=== PATIENT | female | born 1965 | race Hispanic/Latino ===

== ENCOUNTER 2016-11-28 17:50 | Emergency (ER) | payer MEDICAID ==
--- NOTE | 2016-11-28 20:02 | Cat Scan Report ---
FINAL REPORT EXAM: CT HEAD/BRAIN WO CON HISTORY: HEAD PAIN / VISUAL CHANGES TECHNIQUE: CT head without contrast PRIORS: None. FINDINGS: No acute intra-axial or extra-axial hemorrhage is identified. There is no evidence of midline shift or mass effect. The ventricles and sulci are within normal limits. Mayberry-white matter differentiation is intact. No acute parenchymal abnormalities seen. Bony calvarium is grossly intact. Visualized portions of the mastoids and paranasal sinuses are unremarkable. IMPRESSION: Negative CT head
[2016-11-28] MEDS ORDERED: ZOFRAN IV ONE (20:07)
[2016-11-28] MEDS ORDERED: DILAUDID IV ONE ×2 (20:07→21:56)
--- NOTE | 2016-11-28 20:20 | Emergency Department Report ---
ED Headache HPI - General Chief Complaint: Headache Stated Complaint: SPINAL FLUID BUILD UP/MOD CHEST PAIN Time Seen by Provider: 11/28/16 19:57 - History of Present Illness Initial Comments: This is a pleasant 51-year-old female with a long-standing history of pseudotumor cerebri. She states that she's been on different medications in the past with success including Topamax and Diamox. She is currently using BiPAP for treatment. She works with the neurologist at her home with her pseudotumor cerebri. She reports recent trip to [place] approximately 2 months ago. She states since the elevation change she's had significant difficulties with her pseudotumor cerebri. She is required for LPs in the last 45 days. She states this is unusual for her. She is reporting some blurring vision and headache today and has requesting for LP for fluid drainage today as well. Patient denies any fevers denies any specific trauma denies any weakness in arms or legs. Because of the vision changes as described. She states this feels very typical and consistent with her pseudotumor cerebri symptoms. Associated Symptoms: nausea/vomiting, vision changes. denies: fever/chills, nasal congestion, numbness in legs/feet, seizures Allergies/Adverse Reactions: Allergies metronidazole [From Flagyl] Allergy (Verified 11/28/16 18:35) Shortness of Breath haloperidol [From Haldol] Adverse Reaction (Verified 11/28/16 18:35) EXTRAPYRAMIDAL SYMPTOMS haloperidol lactate [From Haldol] Adverse Reaction (Verified 11/28/16 18:35) EXTRAPYRAMIDAL SYMPTOMS Home Medications: Ambulatory Orders Sulfamethoxazole/Trimethoprim [Bactrim DS TAB] 1 each PO BID #6 tablet 11/28/16 ED Review of Systems ROS: Stated complaint: SPINAL FLUID BUILD UP/MOD CHEST PAIN Other details as noted in HPI Comment: All other systems reviewed and negative Constitutional: denies: chills, fever Eyes: denies: eye pain, eye discharge, vision change ENT: denies: ear pain, throat pain Respiratory: denies: cough, shortness of breath, wheezing Cardiovascular: denies: chest pain, palpitations Endocrine: no symptoms reported Gastrointestinal: denies: abdominal pain, nausea, diarrhea Genitourinary: denies: urgency, dysuria, discharge Musculoskeletal: denies: back pain, joint swelling, arthralgia Skin: denies: rash, lesions Neurological: headache. denies: weakness, paresthesias Psychiatric: denies: anxiety, depression Hematological/Lymphatic: denies: easy bleeding, easy bruising ED Past Medical Hx - Past Medical History Hx Hypertension: Yes Additional medical history: PSEUDOTUMOR CEREBRI - Surgical History Hx Cholecystectomy: Yes (1987) Additional Surgical History: HYSTERECTOMY 2013. RIGHT ARTHROSCOPY 2012 - Social History Smoking Status: Current Some Day Smoker Substance Use Type: Prescribed - Medications Home Medications: Home Medications Medication Instructions Recorded Confirmed Last Taken Type Sulfamethoxazole/Trimethoprim 1 each PO BID #6 tablet 11/28/16 Unknown Rx [Bactrim DS TAB] ED Physical Exam - General Limitations: No Limitations General appearance: alert, in no apparent distress - Head Head exam: Present: atraumatic, normocephalic - Eye Eye exam: Present: normal appearance, EOMI. Absent: scleral icterus - ENT ENT exam: Present: normal exam, normal orophraynx, mucous membranes moist - Neck Neck exam: Present: normal inspection, full ROM. Absent: tenderness - Respiratory Respiratory exam: Present: normal lung sounds bilaterally. Absent: respiratory distress, wheezes, rales - Cardiovascular Cardiovascular Exam: Present: regular rate, normal rhythm. Absent: systolic murmur, diastolic murmur, rubs, gallop - GI/Abdominal GI/Abdominal exam: Present: soft, normal bowel sounds. Absent: tenderness, guarding - Extremities Exam Extremities exam: Present: normal inspection. Absent: pedal edema, calf tenderness - Back Exam Back exam: Present: normal inspection. Absent: tenderness, CVA tenderness (R), CVA tenderness (L) - Neurological Exam Neurological exam: Present: alert, oriented X3, CN II-XII intact - Psychiatric Psychiatric exam: Present: normal affect, normal mood - Skin Skin exam: Present: warm, dry, intact, normal color. Absent: rash ED Course Vital Signs 11/28/16 11/28/16 11/28/16 18:37 20:54 21:09 Temperature 98.2 F 98.4 F Temperature [ Intra-Procedure ] Temperature [ Post-Procedure] Temperature [ Pre-Procedure] Pulse Rate 78 72 Pulse Rate [ Intra-Procedure ] Pulse Rate [ Post-Procedure] Pulse Rate [Pre -Procedure] Respiratory 19 20 20 Rate Respiratory Rate [Intra- Procedure] Respiratory Rate [Post- Procedure] Respiratory Rate [Pre- Procedure] Blood Pressure 158/88 Blood Pressure [Intra- Procedure] Blood Pressure 170/84 [Left] Blood Pressure [Post-Procedure ] Blood Pressure [Pre-Procedure] O2 Sat by Pulse 99 97 Oximetry O2 Sat by Pulse Oximetry [ Intra-Procedure ] O2 Sat by Pulse Oximetry [Post -Procedure] O2 Sat by Pulse Oximetry [Pre- Procedure] 11/28/16 11/28/16 11/28/16 21:24 21:45 21:50 Temperature Temperature [ 98.4 F Intra-Procedure ] Temperature [ Post-Procedure] Temperature [ 98.4 F Pre-Procedure] Pulse Rate Pulse Rate [ 81 Intra-Procedure ] Pulse Rate [ Post-Procedure] Pulse Rate [Pre 84 -Procedure] Respiratory 20 Rate Respiratory 20 Rate [Intra- Procedure] Respiratory Rate [Post- Procedure] Respiratory 20 Rate [Pre- Procedure] Blood Pressure Blood Pressure 169/82 [Intra- Procedure] Blood Pressure [Left] Blood Pressure [Post-Procedure ] Blood Pressure 170/84 [Pre-Procedure] O2 Sat by Pulse Oximetry O2 Sat by Pulse 99 Oximetry [ Intra-Procedure ] O2 Sat by Pulse Oximetry [Post -Procedure] O2 Sat by Pulse 99 Oximetry [Pre- Procedure] 11/28/16 11/28/16 11/28/16 22:00 22:19 22:49 Temperature Temperature [ Intra-Procedure ] Temperature [ 98.4 F Post-Procedure] Temperature [ Pre-Procedure] Pulse Rate Pulse Rate [ Intra-Procedure ] Pulse Rate [ 85 Post-Procedure] Pulse Rate [Pre -Procedure] Respiratory 20 20 Rate Respiratory Rate [Intra- Procedure] Respiratory 20 Rate [Post- Procedure] Respiratory Rate [Pre- Procedure] Blood Pressure Blood Pressure [Intra- Procedure] Blood Pressure [Left] Blood Pressure 168/80 [Post-Procedure ] Blood Pressure [Pre-Procedure] O2 Sat by Pulse Oximetry O2 Sat by Pulse Oximetry [ Intra-Procedure ] O2 Sat by Pulse 99 Oximetry [Post -Procedure] O2 Sat by Pulse Oximetry [Pre- Procedure] 11/28/16 11/28/16 22:55 23:07 Temperature Temperature [ Intra-Procedure ] Temperature [ Post-Procedure] Temperature [ Pre-Procedure] Pulse Rate Pulse Rate [ Intra-Procedure ] Pulse Rate [ Post-Procedure] Pulse Rate [Pre -Procedure] Respiratory 20 18 Rate Respiratory Rate [Intra- Procedure] Respiratory Rate [Post- Procedure] Respiratory Rate [Pre- Procedure] Blood Pressure Blood Pressure [Intra- Procedure] Blood Pressure [Left] Blood Pressure [Post-Procedure ] Blood Pressure [Pre-Procedure] O2 Sat by Pulse Oximetry O2 Sat by Pulse Oximetry [ Intra-Procedure ] O2 Sat by Pulse Oximetry [Post -Procedure] O2 Sat by Pulse Oximetry [Pre- Procedure] - Reevaluation(s) Reevaluation #1: 11/29/16 00:51 Patient was given pain medication here per her request. She knows her illness quite well and knew exactly which medication would help her. I did perform LP. She did have significantly elevated opening pressures. Total of 47 mL of spinal fluid was removed. Subjectively patient reported resolution of her spinal headache. She states that she is having some slight frontal headache. I probably didn't drop her pressure is a little too low as my goal was to shoot for 10 and landed up at 8. Ultimately I think she will do fine however. She does have her with her. She did request Lasix as well. She states this is usually helpful as well. She did receive lidocaine patch as well. Neurologically she remained intact before and after the procedure. I feel she is safe for home she has a neurologist to home. - Lumbar Puncture Consent Obtained: written consent Time Out Performed: Yes Indication for Procedure: headache Patient Position: left lateral decubitus Skin Prep: Povidone-Iodine 1% Local Anesthetic Used: Lidocaine 1% Spinal Needle Gauge: 20G Spinal Needle Length: 3in Interspace Used: L4-L5 Opening Pressure (cmH20): 40 Closing Pressure (cmH20): 8 Fluid Initially Obtained: clear Complications: none Patient Tolerated Procedure: well ED Medical Decision Making - Radiology Data Radiology results: report reviewed, image reviewed interpreted by me: Negative Critical care attestation.: If time is entered above; I have spent that time in minutes in the direct care of this critically ill patient, excluding procedure time. ED Disposition Clinical Impression: Pseudotumor cerebri syndrome Disposition: DISCHARGED TO HOME OR SELFCARE Is pt being admited?: No Does the pt Need Aspirin: No Condition: Stable Prescriptions: Sulfamethoxazole/Trimethoprim [Bactrim DS TAB] 1 each PO BID #6 tablet Referrals: [facility] [Other] - 3-5 Days Time of Disposition: 22:13
[2016-11-28 21:30] LABS: Bacteria,Urine 4+ /HPF (Negative); Bilirubin,Urine NEG (Negative); Blood,Urine NEG (Negative); Ketones,Urine NEG (Negative); Leukocyte Esterase,Urine TR (Negative); Mucus,Urine 3+ /HPF; Nitrite,Urine NEG (Negative); Protein,Urine <15 mg/dL mg/dL (Negative); Urobilinogen,Urine < 2.0 mg/dL (<2.0)
[2016-11-28] MEDS ORDERED: DECADRON IV ONE (22:10)
[2016-11-28] MEDS ORDERED: LASIX IV ONE (22:10)
[2016-11-28] MEDS ORDERED: LIDODERM 5% TD SCH (22:15)
[2016-11-28 22:30] VITALS: BP 168/80
[2016-11-28] MEDS ORDERED: PERCOCET 5/325 ONE (22:50)
[2016-11-28] MEDS ORDERED: PERCOCET 5/325 PO ONE (22:53)
== END 2016-11-28 23:09 | disposition home or self-care (01) ==
LOC: ED 17:50
DX: G93.2 Benign intracranial hypertension (principal); I10 Essential (primary) hypertension; F17.200 Nicotine dependence, unspecified, uncomplicated
CPT/HCPCS: 62270; 70450; 81001; 96374; 96375; 96376; 99284; J1100; J1170; J1940; J2405

== ENCOUNTER 2016-12-24 16:02 | Emergency (ER) | payer MEDICAID ==
[2016-12-24 19:49] LABS: Bacteria,Urine 3+ /HPF (Negative); Bilirubin,Urine NEG (Negative); Blood,Urine NEG (Negative); Ketones,Urine NEG (Negative); Leukocyte Esterase,Urine NEG (Negative); Mucus,Urine 1+ /HPF; Nitrite,Urine NEG (Negative); Protein,Urine <15 mg/dL mg/dL (Negative); Urobilinogen,Urine < 2.0 mg/dL (<2.0)
[2016-12-24] MEDS ORDERED: DECADRON IV ONE (20:40)
[2016-12-24] MEDS ORDERED: REGLAN IV ONE (20:40)
[2016-12-24] MEDS ORDERED: FIORICET PO ONE (20:40)
[2016-12-24] MEDS ORDERED: BENADRYL IV ONE (20:40)
[2016-12-24] MEDS ORDERED: XYLOCAINE 2%/EPI 1:100,000 INFILTRATI ONE (20:42)
--- NOTE | 2016-12-24 20:43 | Emergency Department Report ---
ED General Adult HPI - General Chief complaint: Headache Stated complaint: SPINAL FLUID BUILD UP/HEADACHE /NAUSEA Time Seen by Provider: 12/24/16 20:05 Source: patient, RN notes reviewed, old records reviewed Mode of arrival: Ambulatory Limitations: No Limitations - History of Present Illness Initial comments: This is a 51-year-old female. She is previously unknown to me. She currently does not have a private neurologist, but she is trying to arrange follow-up with an outpatient neurology specialist at [facility]. Primary care physician is at [facility]. The patient has a past medical history of pseudotumor cerebri. The patient presents to the ER complaining of her typical pseudotumor cerebri headache. The headache is throbbing, 8 out of 10, worse with laying down. The patient indicates mild decrease in vision in her peripheral vision. The headache is not sudden or thunderclap in nature. Did not reach maximal intensity within an hour. It is not the worse headache of her life. It is consistent with prior headaches. The patient reports that her symptoms typically improved with a spinal tap, Lasix, Decadron. The patient has no chest pain, shortness of breath, no abdominal pain, no extremity weakness, no extremity numbness. -: Gradual Location: head Quality: aching Improves with: medication (as per hpi) Associated Symptoms: cough, headaches. denies: confusion, chest pain, loss of appetite, shortness of breath, syncope, weakness - Related Data Home Medications Medication Instructions Recorded Confirmed Last Taken Lisinopril [Zestril] 20 mg PO QDAY 12/24/16 12/24/16 12/24/16 Meloxicam 15 mg PO QDAY 12/24/16 12/24/16 12/24/16 Metformin HCl [Glucophage] 500 mg PO DAILY 12/24/16 12/24/16 12/24/16 Metoprolol Tartrate [Lopressor] 50 mg PO DAILY 12/24/16 12/24/16 12/24/16 Sertraline HCl [Zoloft] 100 mg PO DAILY 12/24/16 12/24/16 12/24/16 Previous Rx's Medication Instructions Recorded Last Taken Type Metoclopramide [Reglan] 10 mg PO QID PRN #30 tablet 12/25/16 Unknown Rx oxyCODONE [Roxicodone] 5 mg PO Q6HR PRN #15 tablet 12/25/16 Unknown Rx Allergies Allergy/AdvReac Type Severity Reaction Status Date / Time metronidazole [From Flagyl] Allergy Shortness Verified 11/28/16 18:35 of Breath haloperidol [From Haldol] AdvReac EXTRAPYRAMIDAL Verified 11/28/16 18:35 SYMPTOMS haloperidol lactate AdvReac EXTRAPYRAMIDAL Verified 11/28/16 18:35 [From Haldol] SYMPTOMS ED Review of Systems ROS: Stated complaint: SPINAL FLUID BUILD UP/HEADACHE /NAUSEA Other details as noted in HPI Constitutional: denies: fever, malaise Eyes: vision change ENT: denies: ear pain, throat pain Respiratory: denies: orthopnea Cardiovascular: denies: chest pain Gastrointestinal: denies: abdominal pain Genitourinary: denies: dysuria Musculoskeletal: denies: back pain Skin: denies: lesions Neurological: headache. denies: numbness, paresthesias, confusion, abnormal gait, vertigo ED Past Medical Hx - Past Medical History Previous Medical History?: Yes Hx Hypertension: Yes Additional medical history: PSEUDOTUMOR CEREBRI - Surgical History Past Surgical History?: Yes Hx Cholecystectomy: Yes (1987) Additional Surgical History: HYSTERECTOMY 2013. RIGHT ARTHROSCOPY 2012 - Social History Smoking Status: Never Smoker Substance Use Type: None - Medications Home Medications: Home Medications Medication Instructions Recorded Confirmed Last Taken Type Lisinopril [Zestril] 20 mg PO QDAY 12/24/16 12/24/16 12/24/16 History Meloxicam 15 mg PO QDAY 12/24/16 12/24/16 12/24/16 History Metformin HCl [Glucophage] 500 mg PO DAILY 12/24/16 12/24/16 12/24/16 History Metoprolol Tartrate [Lopressor] 50 mg PO DAILY 12/24/16 12/24/16 12/24/16 History Sertraline HCl [Zoloft] 100 mg PO DAILY 12/24/16 12/24/16 12/24/16 History Metoclopramide [Reglan] 10 mg PO QID PRN #30 tablet 12/25/16 Unknown Rx oxyCODONE [Roxicodone] 5 mg PO Q6HR PRN #15 tablet 12/25/16 Unknown Rx ED Physical Exam - General Limitations: No Limitations General appearance: alert, in no apparent distress, obese - Head Head exam: Present: atraumatic, normocephalic - Eye Eye exam: Present: normal appearance, PERRL, EOMI, other (visual acuity is intact to finger counting, color perception, reading at a close distance. Patient has minimal visual field cuts on direct confrontation in 4 quadrants.). Absent: nystagmus - ENT ENT exam: Present: normal exam, normal orophraynx, mucous membranes moist, normal external ear exam - Neck Neck exam: Present: normal inspection, full ROM. Absent: tenderness, meningismus - Respiratory Respiratory exam: Present: normal lung sounds bilaterally. Absent: respiratory distress, wheezes, rales, rhonchi, stridor, chest wall tenderness, accessory muscle use, decreased breath sounds, prolonged expiratory - Cardiovascular Cardiovascular Exam: Present: regular rate, normal rhythm, normal heart sounds. Absent: bradycardia, tachycardia, irregular rhythm, systolic murmur, diastolic murmur, rubs, gallop - GI/Abdominal GI/Abdominal exam: Present: soft, normal bowel sounds. Absent: distended, tenderness, guarding, rebound, rigid, pulsatile mass - Extremities Exam Extremities exam: Present: normal inspection, full ROM, normal capillary refill. Absent: tenderness, pedal edema, joint swelling, calf tenderness - Back Exam Back exam: Present: normal inspection, full ROM. Absent: tenderness, CVA tenderness (R), CVA tenderness (L), muscle spasm, paraspinal tenderness, vertebral tenderness - Neurological Exam Neurological exam: Present: alert, oriented X3, normal gait, other (Extraocular movements intact. Tongue midline. No facial droop. Facial sensation intact to light touch in the V1, V2, V3 distribution bilaterally. 5 and 5 strength in 4 extremities.. Sensation is intact to light touch in 4 extremities.). Absent : motor sensory deficit - Psychiatric Psychiatric exam: Present: normal affect, normal mood - Skin Skin exam: Present: warm, dry, intact, normal color. Absent: rash ED Course Vital Signs 12/24/16 12/24/16 12/24/16 16:11 19:26 19:30 Temperature 98.8 F Pulse Rate 70 74 71 Respiratory 15 16 Rate Blood Pressure 194/108 187/94 Blood Pressure [Left] O2 Sat by Pulse 97 97 98 Oximetry 12/24/16 12/24/16 12/24/16 19:36 19:40 19:50 Temperature Pulse Rate 74 70 68 Respiratory 15 23 19 Rate Blood Pressure 187/94 154/99 Blood Pressure 187/94 [Left] O2 Sat by Pulse 98 94 95 Oximetry 12/24/16 12/24/16 12/24/16 20:00 20:10 20:24 Temperature Pulse Rate 64 64 90 Respiratory 16 20 19 Rate Blood Pressure 150/80 150/80 145/90 Blood Pressure [Left] O2 Sat by Pulse 93 93 93 Oximetry 12/24/16 12/24/16 12/24/16 20:30 20:40 20:50 Temperature Pulse Rate 82 73 75 Respiratory 15 16 16 Rate Blood Pressure 145/90 145/90 166/91 Blood Pressure [Left] O2 Sat by Pulse 95 96 95 Oximetry 12/24/16 12/24/16 12/24/16 21:00 21:12 21:20 Temperature Pulse Rate 91 H 68 Respiratory 22 21 Rate Blood Pressure 167/99 145/90 173/88 Blood Pressure [Left] O2 Sat by Pulse 94 86 94 Oximetry 12/24/16 12/25/16 21:30 00:21 Temperature Pulse Rate 89 73 Respiratory 26 H 18 Rate Blood Pressure 169/94 Blood Pressure 165/70 [Left] O2 Sat by Pulse 97 100 Oximetry - Reevaluation(s) Reevaluation #1: 12/24/16 21:09 Differential diagnosis: Headache secondary to pseudotumor cerebri, incidental elevated blood pressure Assessment and plan: 51-year-old female with history of pseudotumor with headache. Patient indicates she always has hypertension when her headache gets this intense. Patient has a GCS of 15, NIH score of 0. She is smiling, laughing, appears very well, no neck pain or neck stiffness. Patient consents for spinal tap. Given her subjective change in visual agosto, I think it is prudent to perform a spinal tap for symptomatic relief. Risks, benefits, alternatives discussed. Laboratory studies reviewed. Noncontrast CT scan of the brain is pending. At this point in time, patient's blood pressures in the 150s. Reevaluation #2: 12/24/16 23:[address] scan of the brain is negative. Lumbar puncture attempted. Unsuccessful. We are waiting for consultation with neurology at [facility]. Reevaluation #3: 12/24/16 23:59 lumbar puncture attempted, unsuccessful. CT scans are transmitted to [facility] PACs. Case is discussed with neurology on-call, Dr. Francisco Lux. Case is discussed with him. He indicates that the patient's visual complaints is not currently an indication for emergent lumbar puncture. He further recommends that there is no indication to admit the patient for fluoroscopically guided spinal tap. He recommends that the patient follow up with her outpatient neuro-cadastral engineer. I have gone back to discuss this with the patient. She indicates that she does follow up with neuro-ophthalmology at [facility], and that she indicates that she will contact them on Tuesday to arrange a follow-up appointment. She requests oxycodone for pain, she'll be discharged with this. - Lumbar Puncture Consent Obtained: verbal consent, written consent Time Out Performed: Yes Indication for Procedure: other (pseudotumor cerebri) Patient Position: right lateral decubitus Skin Prep: Povidone-Iodine 1% Local Anesthetic Used: Lidocaine 2% Amount of anesthesia used (mls): 6 Spinal Needle Gauge: 22G Spinal Needle Length: 2in Interspace Used: L3-L4 Complications: none, unable to obtain CSF, low back pain, bleeding Patient Tolerated Procedure: well ED Medical Decision Making - Lab Data Result diagrams: 12/24/16 20:31 12/24/16 20:31 Vital Signs (72 hours) 12/24/16 12/24/16 12/24/16 16:11 19:26 19:30 Temperature 98.8 F Pulse Rate 70 74 71 Respiratory 15 16 Rate Blood Pressure 194/108 187/94 Blood Pressure [Left] O2 Sat by Pulse 97 97 98 Oximetry 12/24/16 19:36 Temperature Pulse Rate 74 Respiratory 15 Rate Blood Pressure Blood Pressure 187/94 [Left] O2 Sat by Pulse 98 Oximetry Lab Results 12/24/16 12/24/16 12/24/16 Range/Units 19:10 20:31 20:31 WBC 14.3 H (4.5-11.0) K/mm3 RBC 4.67 (3.65-5.03) M/mm3 Hgb 12.9 (10.1-14.3) gm/dl Hct 40.7 (30.3-42.9) % MCV 87 (79-97) fl MCH 28 (28-32) pg MCHC 32 (30-34) % RDW 14.5 (13.2-15.2) % Plt Count 382 (140-440) K/mm3 Sodium 142 (137-145) mmol/L Potassium 3.8 (3.6-5.0) mmol/L Chloride 101.5 (98-107) mmol/L Carbon Dioxide 28 (22-30) mmol/L Anion Gap 16 mmol/L BUN 15 (7-17) mg/dL Creatinine 0.7 (0.7-1.2) mg/dL Estimated GFR > 60 ml/min BUN/Creatinine Ratio 21.42 % Glucose 126 H (65-100) mg/dL Calcium 9.2 (8.4-10.2) mg/dL Urine Color Yellow (Yellow) Urine Turbidity Clear (Clear) Urine pH 6.0 (5.0-7.0) Ur Specific [place] 1.023 (1.003-1.030) Urine Protein <15 mg/dl (Negative) mg/dL Urine Glucose (UA) Neg (Negative) mg/dL Urine Ketones Neg (Negative) mg/dL Urine Blood Neg (Negative) Urine Nitrite Neg (Negative) Urine Bilirubin Neg (Negative) Urine Urobilinogen < 2.0 (<2.0) mg/dL Ur Leukocyte Esterase Neg (Negative) Urine WBC (Auto) 4.0 (0.0-6.0) /HPF Urine RBC (Auto) 3.0 (0.0-6.0) /HPF U Epithel Cells (Auto) 4.0 (0-13.0) /HPF Urine Bacteria (Auto) 3+ (Negative) /HPF Calcium Oxalate Crystal 2+ Urine Mucus 1+ /HPF Urine HCG, Qual Negative (Negative) Critical care attestation.: If time is entered above; I have spent that time in minutes in the direct care of this critically ill patient, excluding procedure time. ED Disposition Clinical Impression: Headache Disposition: DISCHARGED TO HOME OR SELFCARE Is pt being admited?: No Does the pt Need Aspirin: No Condition: Stable Instructions: Idiopathic Intracranial Hypertension (ED) Additional Instructions: Take the medications as directed. Follow up with her outpatient neuro ophthalmology specialist within the next week. Return to the ER right away with fevers or chills, chest pain or shortness of breath, extremity weakness, extremity numbness, loss of vision, fevers or chills. Prescriptions: Metoclopramide [Reglan] 10 mg PO QID PRN #30 tablet PRN Reason: Nausea oxyCODONE [Roxicodone] 5 mg PO Q6HR PRN #15 tablet PRN Reason: Pain Referrals: PRIMARY CARE, [Primary Care Provider] - 3-5 Days OMAR RICHTER MD [Staff Physician] - 3-5 Days ELEAZAR AU MD [Staff Physician] - 3-5 Days ABHISHEK MORRIS MD [Staff Physician] - 3-5 Days
[2016-12-24 20:59] LABS: Hematocrit 40.7 % (30.3-42.9); Hemoglobin 12.9 gm/dl (10.1-14.3); Mean Corpuscular HGB Conc 32 % (30-34); Mean Corpuscular Hemoglobin 28 pg (28-32); Mean Corpuscular Volume 87 fl (79-97); Platelet Count 382 K/mm3 (140-440); Red Blood Count 4.67 M/mm3 (3.65-5.03); Red Cell Distribution Width 14.5 % (13.2-15.2); White Blood Count 14.3 K/mm3 (4.5-11.0)
[2016-12-24 21:00] LABS: Anion Gap 16 mmol/L; BUN/Creatinine Ratio 21.42; Blood Urea Nitrogen 15 mg/dL (7-17); Calcium 9.2 mg/dL (8.4-10.2); Carbon Dioxide 28 mmol/L (22-30); Chloride 101.5 mmol/L (98-107); Glucose 126 mg/dL (65-100); Potassium 3.8 mmol/L (3.6-5.0); Sodium 142 mmol/L (137-145)
[2016-12-24 21:50] LABS: INR 0.97 (0.87-1.13)
--- NOTE | 2016-12-24 22:38 | Cat Scan Report ---
FINAL REPORT EXAM: CT HEAD/BRAIN WO CON HISTORY: conrad, hx of pseudotumor cerebri TECHNIQUE: CT imaging acquired through the head without intravenous contrast. Transaxial reformations are provided. PRIORS: 11/28/2016 FINDINGS: The ventricles, cisterns and sulci are within normal limits. No intraparenchymal or extra-axial mass, hemorrhage, or mass effect. Mayberry and white-matter differentiation is within normal limits. Normal spherical shape of the globes. Paranasal sinuses and mastoid air cells are clear. No skull or facial fracture visualized. IMPRESSION: No acute intracranial abnormality. Consider MRI follow-up.
[2016-12-24] MEDS ORDERED: SUBLIMAZE ONE (22:47)
[2016-12-24] MEDS ORDERED: SUBLIMAZE IV ONE ×2 (22:48→22:50)
[2016-12-24] MEDS ORDERED: ZOFRAN IV ONE (22:51)
[2016-12-24] MEDS ORDERED: ZOFRAN ONE (22:55)
[2016-12-25 00:22] VITALS: BP 165/70
== END 2016-12-25 00:22 | disposition home or self-care (01) ==
LOC: ED 16:02
DX: R51 Headache (principal); I10 Essential (primary) hypertension; Z90.49 Acquired absence of other specified parts of digestive tract; Z90.710 Acquired absence of both cervix and uterus; Z88.8 Allergy status to other drugs, medicaments and biological substances
CPT/HCPCS: 36415; 62270; 70450; 80048; 81001; 81025; 85027; 85610; 85730; 96374; 96375; 99284; J1100; J1200; J2405; J2765; J2930; J3010

== ENCOUNTER 2017-02-02 17:45 | Emergency (ER) | payer MEDICAID ==
[2017-02-02 19:37] LABS: Basophils % (Auto) 0.5 % (0.0-1.8); Eosinophils % (Auto) 2.6 % (0.0-4.3); Hematocrit 39.8 % (30.3-42.9); Hemoglobin 12.9 gm/dl (10.1-14.3); Mean Corpuscular HGB Conc 33 % (30-34); Mean Corpuscular Hemoglobin 28 pg (28-32); Mean Corpuscular Volume 87 fl (79-97); Platelet Count 362 K/mm3 (140-440); Red Blood Count 4.58 M/mm3 (3.65-5.03); Red Cell Distribution Width 14.8 % (13.2-15.2); White Blood Count 14.2 K/mm3 (4.5-11.0)
[2017-02-02 19:46] LABS: INR 0.94 (0.87-1.13)
[2017-02-02 19:47] LABS: Partial Thromboplastin Time 24.9 Sec. (24.2-36.6)
[2017-02-02 20:00] LABS: Alanine Aminotransferase 26 units/L (7-56); Albumin 4.1 g/dL (3.9-5); Albumin/Globulin Ratio 1.5 %; Alkaline Phosphatase 119 units/L (35-129); Anion Gap 19 mmol/L; Blood Urea Nitrogen 14 mg/dL (7-17); Calcium 9.5 mg/dL (8.4-10.2); Carbon Dioxide 28 mmol/L (22-30); Chloride 100.3 mmol/L (98-107); Glucose 114 mg/dL (65-100); Potassium 3.8 mmol/L (3.6-5.0); Sodium 143 mmol/L (137-145); Total Protein 6.9 g/dL (6.3-8.2)
[2017-02-02] MEDS ORDERED: ZOFRAN IV ONE (20:55)
[2017-02-02] MEDS ORDERED: SUBLIMAZE IV ONE ×2 (20:55→22:10)
--- NOTE | 2017-02-02 21:00 | Emergency Department Report ---
HPI - General Chief Complaint: Headache Time Seen by Provider: 02/02/17 20:48 - HPI HPI: Room 10 The patient is a 51-year-old female presenting with a chief complaint of headache. The patient states she has a history of pseudotumor cerebri has not been unable to get a neurologist recently secondary to insurance change. Patient suggested days developed a global headache feels just like her previous bouts of pseudotumor cerebri. Patient states the headache is worse lying down. Patient admits to nausea but denies vomiting. Patient denies fever or recent trauma. Patient currently gives her pain a score of 9/10 Location: Headache Duration: Constant since yesterday Quality: Headache consistent with previous pseudotumor cerebri headaches Severity: 9/10 Modifying factors: [see above] Context: [see above] Mode of transportation: [not driving] ED Past Medical Hx - Past Medical History Previous Medical History?: Yes Hx Hypertension: Yes Additional medical history: PSEUDOTUMOR CEREBRI, rosacea - Surgical History Past Surgical History?: Yes Hx Cholecystectomy: Yes (1987) Additional Surgical History: HYSTERECTOMY 2013. RIGHT ARTHROSCOPY 2012 - Family History Family history: no significant - Social History Smoking Status: Current Every Day Smoker Substance Use Type: Alcohol (rarely) - Medications Home Medications: Home Medications Medication Instructions Recorded Confirmed Last Taken Type Lisinopril [Zestril] 20 mg PO QDAY 12/24/16 02/02/17 12/24/16 History Meloxicam 15 mg PO QDAY 12/24/16 02/02/17 12/24/16 History Metformin HCl [Glucophage] 500 mg PO DAILY 12/24/16 02/02/17 12/24/16 History Metoprolol Tartrate [Lopressor] 50 mg PO DAILY 12/24/16 02/02/17 12/24/16 History Sertraline HCl [Zoloft] 100 mg PO DAILY 12/24/16 02/02/17 12/24/16 History Metoclopramide [Reglan] 10 mg PO QID PRN #30 tablet 12/25/16 02/02/17 Unknown Rx oxyCODONE [Roxicodone] 5 mg PO Q6HR PRN #15 tablet 12/25/16 02/02/17 Unknown Rx Butalb/Acetamin/Caff 50-325-40 2 tab PO Q8HR PRN #20 tablet 02/02/17 Unknown Rx [Fioricet] Promethazine [Phenergan TAB] 25 mg PO Q6HR PRN #20 tab 02/02/17 Unknown Rx Promethazine [Phenergan] 25 mg [place] Q6HR PRN #10 supp.rect 02/02/17 Unknown Rx ED Review of Systems ROS: Stated complaint: HEADACHE/BLURRED VISION/NAUSEA Other details as noted in HPI Comment: All other systems reviewed and negative Constitutional: denies: chills, fever Eyes: vision change. denies: eye pain, eye discharge ENT: denies: ear pain, throat pain Respiratory: denies: cough, shortness of breath, wheezing Cardiovascular: as per HPI Endocrine: no symptoms reported Gastrointestinal: nausea. denies: vomiting Genitourinary: denies: urgency, dysuria, discharge Musculoskeletal: denies: back pain, joint swelling, arthralgia Skin: denies: rash, lesions Neurological: headache Psychiatric: denies: anxiety, depression Hematological/Lymphatic: denies: easy bleeding, easy bruising Physical Exam - Physical Exam Vital Signs: Vital Signs 02/02/17 02/02/17 19:01 20:24 Temperature 99 F Pulse Rate 78 95 H Respiratory 20 16 Rate Blood Pressure 183/121 Blood Pressure 167/94 [Left] O2 Sat by Pulse 100 96 Oximetry Physical Exam: GENERAL: The patient is well-developed well-nourished female lying on stretcher not appearing to be in acute distress. [] HEENT: Normocephalic. Atraumatic. Extraocular motions are intact. Patient has moist mucous membranes. NECK: Supple. No meningitic signs are noted. Trachea midline CHEST/LUNGS: Clear to auscultation. There is no respiratory distress noted. HEART/CARDIOVASCULAR: Regular. There is no tachycardia. There is no gallop rub or murmur. ABDOMEN: Abdomen is soft, nontender. Patient has normal bowel sounds. There is no abdominal distention. SKIN: There is no rash. There is no edema. There is no diaphoresis. NEURO: The patient is awake, alert, and oriented. The patient is cooperative. The patient has no focal neurologic deficits. The patient has normal speech. Cranial nerves II through XII grossly intact, no drift. Normal sensation throughout MUSCULOSKELETAL: There is no evidence of acute injury. ED Course Vital Signs 02/02/17 02/02/17 19:01 20:24 Temperature 99 F Pulse Rate 78 95 H Respiratory 20 16 Rate Blood Pressure 183/121 Blood Pressure 167/94 [Left] O2 Sat by Pulse 100 96 Oximetry - Lumbar Puncture Consent Obtained: verbal consent Time Out Performed: Yes Indication for Procedure: headache Patient Position: left lateral decubitus Skin Prep: Povidone-Iodine 1% Local Anesthetic Used: Lidocaine 1% Amount of anesthesia used (mls): 10 Spinal Needle Gauge: 20G Spinal Needle Length: 3.5in Interspace Used: L4-L5 Opening Pressure (cmH20): 46.5 Closing Pressure (cmH20): 12 Fluid Initially Obtained: clear Complications: none Patient Tolerated Procedure: well ED Medical Decision Making - Lab Data Result diagrams: 02/02/17 19:27 02/02/17 19:27 Laboratory Tests 02/02/17 02/02/17 02/02/17 19:27 19:27 19:27 WBC 14.2 H RBC 4.58 Hgb 12.9 Hct 39.8 MCV 87 MCH 28 MCHC 33 RDW 14.8 Plt Count 362 Lymph % (Auto) 16.9 [place] % (Auto) 7.4 H Eos % (Auto) 2.6 Baso % (Auto) 0.5 Lymph # 2.4 [place] # 1.1 H Eos # 0.4 Baso # 0.1 Seg Neutrophils % 72.6 H Seg Neutrophils # 10.3 H PT 12.5 INR 0.94 APTT 24.9 Sodium 143 Potassium 3.8 Chloride 100.3 Carbon Dioxide 28 Anion Gap 19 BUN 14 Creatinine 0.7 Estimated GFR > 60 BUN/Creatinine Ratio 20.00 Glucose 114 H Calcium 9.5 Total Bilirubin 0.40 AST 15 ALT 26 Alkaline Phosphatase 119 Total Protein 6.9 Albumin 4.1 Albumin/Globulin Ratio 1.5 Laboratory Tests 02/02/17 02/02/17 02/02/17 19:27 19:27 19:27 WBC 14.2 H RBC 4.58 Hgb 12.9 Hct 39.8 MCV 87 MCH 28 MCHC 33 RDW 14.8 Plt Count 362 Lymph % (Auto) 16.9 [place] % (Auto) 7.4 H Eos % (Auto) 2.6 Baso % (Auto) 0.5 Lymph # 2.4 [place] # 1.1 H Eos # 0.4 Baso # 0.1 Seg Neutrophils % 72.6 H Seg Neutrophils # 10.3 H PT 12.5 INR 0.94 APTT 24.9 Sodium 143 Potassium 3.8 Chloride 100.3 Carbon Dioxide 28 Anion Gap 19 BUN 14 Creatinine 0.7 Estimated GFR > 60 BUN/Creatinine Ratio 20.00 Glucose 114 H Calcium 9.5 Total Bilirubin 0.40 AST 15 ALT 26 Alkaline Phosphatase 119 Total Protein 6.9 Albumin 4.1 Albumin/Globulin Ratio 1.5 Urine Color Urine Turbidity Urine pH Ur Specific [place] Urine Protein Urine Glucose (UA) Urine Ketones Urine Blood Urine Nitrite Urine Bilirubin Urine Urobilinogen Ur Leukocyte Esterase Urine WBC (Auto) Urine RBC (Auto) U Epithel Cells (Auto) Urine Bacteria (Auto) CSF Appearance CSF Color CSF WBC CSF RBC CSF Glucose CSF Total Protein 02/02/17 02/02/17 02/02/17 20:24 23:01 23:01 WBC RBC Hgb Hct MCV MCH MCHC RDW Plt Count Lymph % (Auto) [place] % (Auto) Eos % (Auto) Baso % (Auto) Lymph # [place] # Eos # Baso # Seg Neutrophils % Seg Neutrophils # PT INR APTT Sodium Potassium Chloride Carbon Dioxide Anion Gap BUN Creatinine Estimated GFR BUN/Creatinine Ratio Glucose Calcium Total Bilirubin AST ALT Alkaline Phosphatase Total Protein Albumin Albumin/Globulin Ratio Urine Color Straw Urine Turbidity Clear Urine pH 6.0 Ur Specific [place] 1.011 Urine Protein <15 mg/dl Urine Glucose (UA) Neg Urine Ketones Neg Urine Blood Neg Urine Nitrite Neg Urine Bilirubin Neg Urine Urobilinogen < 2.0 Ur Leukocyte Esterase Neg Urine WBC (Auto) < 1.0 Urine RBC (Auto) 1.0 U Epithel Cells (Auto) 1.0 Urine Bacteria (Auto) 2+ CSF Appearance Clear CSF Color Colorless CSF WBC 1 CSF RBC 14 CSF Glucose 63 CSF Total Protein 33 02/02/17 23:01 WBC RBC Hgb Hct MCV MCH MCHC RDW Plt Count Lymph % (Auto) [place] % (Auto) Eos % (Auto) Baso % (Auto) Lymph # [place] # Eos # Baso # Seg Neutrophils % Seg Neutrophils # PT INR APTT Sodium Potassium Chloride Carbon Dioxide Anion Gap BUN Creatinine Estimated GFR BUN/Creatinine Ratio Glucose Calcium Total Bilirubin AST ALT Alkaline Phosphatase Total Protein Albumin Albumin/Globulin Ratio Urine Color Urine Turbidity Urine pH Ur Specific [place] Urine Protein Urine Glucose (UA) Urine Ketones Urine Blood Urine Nitrite Urine Bilirubin Urine Urobilinogen Ur Leukocyte Esterase Urine WBC (Auto) Urine RBC (Auto) U Epithel Cells (Auto) Urine Bacteria (Auto) CSF Appearance Clear CSF Color Colorless CSF WBC 0 CSF RBC 3 CSF Glucose CSF Total Protein - Radiology Data Radiology results: report reviewed (CT head), image reviewed (CT head) CT head (read by radiologist)-no CT evidence of acute intracranial abnormality - Differential Diagnosis pseudotumor cerebra, ICH, intracranial mass, Critical care attestation.: If time is entered above; I have spent that time in minutes in the direct care of this critically ill patient, excluding procedure time. ED Disposition Clinical Impression: Pseudotumor cerebri, Headache Disposition: TO HOME OR SELFCARE Is pt being admited?: No Does the pt Need Aspirin: No Condition: Stable Instructions: Idiopathic Intracranial Hypertension (ED), Acute Headache (ED) Additional Instructions: Return to the emergency department immediately should you develop worsening symptoms, fever, inability to tolerate food or liquid or any other concerns. Prescriptions: Butalb/Acetamin/Caff 50-325-40 [Fioricet] 2 tab PO Q8HR PRN #20 tablet PRN Reason: Headache Promethazine [Phenergan TAB] 25 mg PO Q6HR PRN #20 tab PRN Reason: Nausea Promethazine [Phenergan] 25 mg [place] Q6HR PRN #10 supp.rect PRN Reason: Vomiting Referrals: ABHISHEK MILLS MD [Staff Physician] - [facility] (Dr. Mills is a neurologist. Please follow up with him or your own neurologist for further evaluation) Dr. Taco Johnson, neurology [Other] - [facility] Time of Disposition: 00:17
[2017-02-02 21:28] LABS: Bacteria,Urine 2+ /HPF (Negative); Bilirubin,Urine NEG (Negative); Blood,Urine NEG (Negative); Ketones,Urine NEG (Negative); Leukocyte Esterase,Urine NEG (Negative); Nitrite,Urine NEG (Negative); Protein,Urine <15 mg/dL mg/dL (Negative); Urobilinogen,Urine < 2.0 mg/dL (<2.0); WBC,Urine < 1.0 /HPF (0.0-6.0)
--- NOTE | 2017-02-02 21:45 | Cat Scan Report ---
FINAL REPORT PROCEDURE: CT HEAD/BRAIN WO CON TECHNIQUE: Computerized tomography of the head was performed without contrast material. HISTORY: headache, history of pseudotumor cerebri COMPARISON: 12/24/2016 FINDINGS: No CT evidence of intracranial mass, hemorrhage, acute territorial infarction, or hydrocephalus. Ventricles are unchanged in size since the prior studies. Calvarium is intact. The visualized paranasal sinuses and mastoids are aerated IMPRESSION: No CT evidence of acute intracranial abnormality
[2017-02-02] MEDS ORDERED: REGLAN IV ONE (22:11)
[2017-02-02] MEDS ORDERED: XYLOCAINE 1% 20 mL ONE (22:31)
[2017-02-02] MEDS ORDERED: MORPHINE IV ONE (23:01)
[2017-02-02 23:20] LABS: Glucose,CSF 63 mg/dL
[2017-02-02 23:57] VITALS: BP 150/103
[2017-02-03 00:09] LABS: Appearance,CSF Clear; White Blood Cell,CSF 1 /mm3 (1-10)
[2017-02-03 00:10] LABS: Appearance,CSF Clear; White Blood Cell,CSF 0 /mm3 (1-10)
[2017-02-03 02:02] LABS: Basophils CSF 0 %; CSF Diff Status Complete
[2017-02-03 02:04] LABS: Basophils CSF 0 %; CSF Diff Status Complete
== END 2017-02-03 00:58 | disposition home or self-care (01) ==
LOC: ED 17:45
DX: G93.2 Benign intracranial hypertension (principal); F17.200 Nicotine dependence, unspecified, uncomplicated; Z90.49 Acquired absence of other specified parts of digestive tract; Z90.710 Acquired absence of both cervix and uterus
CPT/HCPCS: 36415; 62270; 70450; 80053; 81001; 82947; 84160; 85025; 85610; 85730; 87116; 89051; 96374; 96375; 96376; 99284; J2270; J2405; J2765; J3010